=== PATIENT | male | born 1935 | race Caucasian/White ===

== ENCOUNTER 2022-12-12 08:03 | Emergency (ER) | payer OTHER ==
--- OUTSIDE RECORDS SUMMARY | 2022-12-12 08:06 | XMS REPORT | Continuity of Care Document ---
:1935 Author Organization [facility] t Address [address] [place] [address] Care Team Providers Name Role Phone CHECO CRAMONA Primary Care Physician Unavailable TAVIA MISTRY Attending Clinician Unavailable AYLA HIDALGO Attending Clinician Unavailable CHECO CARMONA Attending Clinician Unavailable Payers Payer Name Policy Type Policy Number Effective Date Expiration Date Tulio james LANDON/RAMANA [id number] 2020 MEDICARE ADVANTAGE 00:00:00 MEDICARE PART A [id number] 2001 \T\ B 00:00:00 Problems Condition Condition Condition Status Onset Resolution Last Treating Co mments Source Name Details Category Date Date Treatment Clinician Date Pain in Pain in Diagnosis Active Commo n joint of joint of [facility] right right [facility] Primary Primary Diagnosis Active Commo n osteoarthr osteoarthr Sp epifanio itis of itis of [facility] right right [facility] Subacromia Subacromia Diagnosis Active Common l bursitis l bursitis Sp epifanio of right of right - [facility] shoulder shoulder joint [facility] Allergies, Adverse Reactions, Alerts Allergy Allergy Status Severity Reaction(s) Onset Inactive Treating Comm ents Source Name Type Date Date Clinician NO KNOWN Drug Active Univers ALLERGIE Class ity of [facility] Medications Ordered Filled Start Stop Current Ordering Indication Dosage Frequency Signature Comments Components Source Medication Medication Date Date Medication? Clinician (SIG) Name Name Cholecalcif Cholecalcif 2019-0 Yes Manny 1 tablet Common monica monica 09-01 [facility] 00:00: - [facility] Cetirizine Cetirizine 2019- Yes Manny 1 tablet Common HCl HCl 09-01 [facility] 00:00: - [facility] Hydrochloro Hydrochloro 2020-0 Yes Manny 1 tablet Common thiazide thiazide 5- [facility] 00:00: morning - [facility] Hydrochloro Hydrochloro 2020-0 Yes Manny 1 tablet Common thiazide thiazide 5-07 [facility] 00:00: morning - [facility] Cephalexin Cephalexin 2020-0 Yes Manny 1 capsule Common - [facility] 00:00: - [facility] Etodolac Etodolac 2020-0 Yes Manny 1 capsule Common - Stanley with food Spirit 00:00: - [facility] Diclofenac Diclofenac Yes Manny as Common Sodium Sodium Stanley directed [facility] Procedures This patient has no known procedures. Encounters Start End Encounter Admission Attending Care Care Encounter Source Date/Time Date/Time Type Type Clinicians Facility Department ID 2021-05-23 Outpatient [facility] [id number] Common 11:20:55 [id number] [facility] 2021-05-10 2021-05-10 Outpatient Chelsie MISTRY [facility] [id number] Univers 15:40:00 15:40:00 TAVIA [facility] 2020-06-22 2020-06-22 Outpatient Chelsie HIDALGO [facility] [id number] Univers 09:30:00 09:30:00 AYLA [facility] 2020-06-16 2020-06-16 Outpatient Chelsie HIDALGO [facility] [id number] Univers 09:40:00 09:40:00 AYLA [facility] 2020-05-29 2020-05-29 Outpatient Chelsie CARMONA [facility] [id number] Univers 13:40:00 13:40:00 CHECO [facility] 2020-05-26 2020-05-26 Outpatient Chelsie HIDALGO [facility] [id number] Univers 12:50:00 12:50:00 AYLA [facility] 2020-04-18 2020-04-18 Outpatient Chelsie [facility] [id number] Univers 14:45:00 14:45:00 [facility] 2019-09-02 2019-09-02 Outpatient [facility]raz[facility]irley Mosst [id number] Common 09:00:00 09:00:00 [facility] Results This patient has no known results.
--- NOTE | 2022-12-12 09:26 | RAD REPORT ---
EXAM DESCRIPTION: US - UPPER EXTREMITY VENOUS UNILATE - 12/12/2022 9:05 am CLINICAL HISTORY: Swelling COMPARISON: None. TECHNIQUE: Real-time sonographic evaluation of the left upper extremity deep venous system was perfo rmed. FINDINGS: Normal compressibility, flow augmentation, phasic flow and spontaneous flow is identified in the left upper extremity deep venous system. No intraluminal filling defects seen. Subcutaneous ed lui in the region of swelling at the elbow, without appreciable fluid collections. IMPRESSION: No DVT in the left upper extremity. Subcutaneous swelling at the elbow.
--- NOTE | 2022-12-12 09:30 | EDPHYS ---
Physician Documentation [facility] Name: Owen Boo Age: 87 yrs Sex: Male : 1935 Arrival Date: 12/12/2022 Time: 08:03 Bed 5 Private MD: Jeff Amezcua E ED Physician James Mcneil HPI: 12/12 08:18 This 87 yrs old Male presents to ER via Ambulatory with complaints of Arm Swelling. sb4 08:18 Onset: The symptoms/episode began/occurred yesterday. patient states he noticed his sb4 left elbow was red and swollen yesterday. he reports mild pain, denies fever. his granddaughter is a nurse and told him he might have a blood clot. he denies any chest pain, shortness of breath, nausea, vomiting. Historical: - Allergies: 08:51 No Known Allergies; ap3 - Home Meds: 08:51 None [Active]; ap3 - PMHx: 08:51 None; ap3 - Immunization history:: Adult Immunizations up to date. - Social history:: Smoking status: Patient denies any tobacco usage or history of. ROS: 08:18 Constitutional: Negative for fever, chills, and weight loss. sb4 08:18 MS/extremity: Positive for erythema, swelling, tenderness, warmth, of the left elbow. 08:18 All other systems are negative. Exam: 08:18 Constitutional: This is a well developed, well nourished patient who is awake, alert, sb4 and in no acute distress. 08:18 Musculoskeletal/extremity: ROM: intact in all extremities, Circulation is intact in all extremities. Sensation intact. Compartment Syndrome exam of affected extremity: the left elbow is normal. no numbness, no tingling, no sensation deficit, no palor, no weak pulses. 08:18 Skin: cellulitis, that is mild, on the left elbow, induration, is not appreciated. Vital Signs: 08:17 BP 137 / 64; Weight 86.18 kg; Height 5 ft. 3 in. ; Pain 6/10; ap3 08:20 BP 125 / 67; ld1 08:51 Pulse 73; Pulse Ox 98% on R/A; ap3 08:17 Body Mass Index 33.66 (86.18 kg, 160.02 cm) ap3 08:17 Pain Scale: Adult ap3 MDM: 08:07 Patient medically screened. sb4 08:18 Differential diagnosis: cellulitis, abscess, DVT. sb4 09:29 Data reviewed: vital signs, nurses notes, radiologic studies, doppler, and as a result, sb4 I will discharge patient. Counseling: I had a detailed discussion with the patient and/or guardian regarding the historical points, exam findings, and any diagnostic results supporting the discharge/admit diagnosis, the presence of at least one elevated blood pressure reading (>120/80) during this emergency department visit, radiology results, to return to the emergency department if symptoms worsen or persist or if there are any questions or concerns that arise at home. 12/12 08:15 Order name: Extremity Venous Uni Ltd US sb4 12/12 08:19 Order name: UPPER EXTREMITY VENOUS UNILATE; Complete Time: 09:27 EDMS Administered Medications: 09:37 Drug: Cephalexin PO 500 mg Route: PO; ap3 09:38 Follow up: Response: No adverse reaction ap3 Disposition Summary: 12/12/22 09:29 Discharge Ordered Location: Home sb4 Problem: new sb4 Symptoms: are unchanged sb4 Condition: Stable sb4 Diagnosis - Cellulitis of left upper limb sb4 Followup: sb4 - With: - When: As needed - Reason: Recheck today's complaints, Continuance of care, Re-evaluation by your physician Discharge Instructions: - Discharge Summary Sheet sb4 - Cellulitis, Adult sb4 Forms: - Medication Reconciliation Form sb4 - Thank You Letter sb4 - Antibiotic Education sb4 - Prescription Opioid Use sb4 - Patient Portal Instructions sb4 - Leadership Thank You Letter sb4 Prescriptions: - Cephalexin 500 mg Oral Capsule - take 1 capsule by ORAL route every 12 hours for 10 days; 20 capsule; Refills: sb4 0, Product Selection Permitted Signatures: Dispatcher [employer] Jared Canchola RN RN bp Prokisch, Amanda, RN RN ap3 Kayla Massey PA-C PA-C sb4 Corrections: (The following items were deleted from the chart) 08:18 08:18 Allergies: No Known Allergies; ap3 ap3
--- NOTE | 2022-12-12 09:30 | ER ---
Nurse's Notes [facility] Name: Owen Boo Age: 87 yrs Sex: Male : 1935 Arrival Date: 12/12/2022 Time: 08:03 Bed 5 Private MD: Jeff Amezcua E Diagnosis: Cellulitis of left upper limb Presentation: 12/12 08:15 Chief complaint: Patient states: LEFT ELBOW PAIN/EDEMA/ERYTHEMA. Coronavirus screen: At bp this time, the client does not indicate any symptoms associated with coronavirus-19. Ebola Screen: No symptoms or risks identified at this time. Initial Sepsis Screen: Does the patient meet any 2 criteria? No. Patient's initial sepsis screen is negative. Does the patient have a suspected source of infection? No. Patient's initial sepsis screen is negative. Risk Assessment: Do you want to hurt yourself or someone else? Patient reports no desire to harm self or others. Note DENIES TRAUMA. Onset of symptoms was December 11, 2022. 08:15 Method Of Arrival: Ambulatory bp 08:15 Acuity: BABS 3 bp Triage Assessment: 08:15 General: Appears uncomfortable, Behavior is calm, cooperative, appropriate for age. bp Pain: Complains of pain in left elbow. EENT: No deficits noted. Neuro: No deficits noted. Cardiovascular: No deficits noted. Respiratory: No deficits noted. GI: No signs and/or symptoms were reported involving the gastrointestinal system. : No signs and/or symptoms were reported regarding the genitourinary system. Derm: LEFT ELBOW ERYTHEMA. Musculoskeletal: Swelling present in left elbow. Historical: - Allergies: 08:51 No Known Allergies; ap3 - Home Meds: 08:51 None [Active]; ap3 - PMHx: 08:51 None; ap3 - Immunization history:: Adult Immunizations up to date. - Social history:: Smoking status: Patient denies any tobacco usage or history of. Screenin:18 [facility] ED Fall Risk Assessment (Adult) History of falling in the last 3 months, ap3 including since admission No falls in past 3 months (0 pts). Abuse screen: Denies threats or abuse. Nutritional screening: No deficits noted. Tuberculosis screening: No symptoms or risk factors identified. Assessment: 08:20 Reassessment: See triage assessment. ld1 08:20 Reassessment: Patient appears in no apparent distress at this time. No changes from ld1 previously documented assessment. Patient and/or family updated on plan of care and expected duration. Pain level reassessed. Patient is alert, oriented x 3, equal unlabored respirations, skin warm/dry/pink. Vital Signs: 08:17 BP 137 / 64; Weight 86.18 kg; Height 5 ft. 3 in. ; Pain 6/10; ap3 08:20 BP 125 / 67; ld1 08:51 Pulse 73; Pulse Ox 98% on R/A; ap3 08:17 Body Mass Index 33.66 (86.18 kg, 160.02 cm) ap3 08:17 Pain Scale: Adult ap3 ED Course: 08:06 Patient arrived in ED. rg4 08:06 Jeff Amezcua MD is Private Physician. rg4 08:07 Kayla Massey [facility]-C [facility] sb4 08:07 James Mcneil MD is Attending Physician. sb4 08:16 Triage completed. bp 08:17 Arm band placed on. bp 08:18 Patient has correct armband on for positive identification. Bed in low position. Call ap3 light in reach. Side rails up X 1. Pulse ox on. NIBP on. 08:20 No provider procedures requiring assistance completed. ld1 08:49 Maribel De Luna, SUNNY is Primary Nurse. ld1 08:53 UPPER EXTREMITY VENOUS UNILATE In Process Unspecified. EDMS 09:29 Jeff Amezcua MD is Referral Physician. sb4 09:38 Provided Education on: discharge instructions. ap3 09:38 Patient did not have IV access during this emergency room visit. ap3 Administered Medications: 09:37 Drug: Cephalexin PO 500 mg Route: PO; ap3 09:38 Follow up: Response: No adverse reaction ap3 Medication: 08:20 VIS not applicable for this client. ld1 Outcome: 09:29 Discharge ordered by . sb4 09:38 Discharged to home ambulatory. ap3 09:38 Condition: good 09:38 Discharge instructions given to patient, Instructed on discharge instructions, follow up and referral plans. medication usage, Demonstrated understanding of instructions, follow-up care, medications, Prescriptions given X 1. 09:38 Patient left the ED. ap3 Signatures: Dispatcher [employer] EDMS Berna Ramos rg4 Jared Sarkar, RN RN Magy Rebollar RN RN ap3 Maribel De Luna RN RN ld1 Kayla Massey PA-C PAKristofer sb4 Corrections: (The following items were deleted from the chart) 08:18 08:18 Allergies: No Known Allergies; ap3 ap3
[2022-12-12 09:43] VITALS: BP 125/67
[2022-12-12 09:44] VITALS: O2SAT 98
== END 2022-12-12 09:38 | disposition home or self-care (01) ==
LOC: ER 08:03
DX: L03.114 Cellulitis of left upper limb (principal)
CPT/HCPCS: 93971; 99283

== ENCOUNTER 2023-01-02 06:47 | Inpatient (IN) | payer OTHER ==
--- OUTSIDE RECORDS SUMMARY | 2023-01-02 06:49 | XMS REPORT | Continuity of Care Document ---
:1935 Author Organization [facility] t Address [address] [place] [address] Care Team Providers Name Role Phone CHECO CARMONA Primary Care Physician Unavailable TAVIA MISTRY Attending Clinician Unavailable AYLA HIDALGO Attending Clinician Unavailable CHECO CARMONA Attending Clinician Unavailable Payers Payer Name Policy Type Policy Number Effective Date Expiration Date Tulio NAVARRETE/RAMANA [id number] 2020 MEDICARE ADVANTAGE 00:00:00 MEDICARE PART A [id number] 2001 \T\ B 00:00:00 Problems Condition Condition Condition Status Onset Resolution Last Treating Co mments Source Name Details Category Date Date Treatment Clinician Date Pain in Pain in Diagnosis Active Commo n joint of joint of [facility] right right [facility] Primary Primary Diagnosis Active Commo n osteoarthr osteoarthr Sp epifanio itis of itis of [facility] right right [facility] Subacromia Subacromia Diagnosis Active Common l bursitis l bursitis Sp epifanio of right of right - [facility] Allergies, Adverse Reactions, Alerts Allergy Allergy Status Severity Reaction(s) Onset Inactive Treating Comm ents Source Name Type Date Date Clinician NO KNOWN Drug Active Univers ALLERGIE Class ity of S [facility] Medications Ordered Filled Start Stop Current Ordering Indication Dosage Frequency Signature Comments Components Source Medication Medication Date Date Medication? Clinician (SIG) Name Name Cholecalcif Cholecalcif Yes Manny 1 tablet Common monica monica 09-01 [facility] 00:00: - [facility] 00 [facility] Cetirizine Cetirizine Yes Manny 1 tablet Common HCl HCl 5-07 [facility] 00:00: - [facility] Hydrochloro Hydrochloro 2020-0 Yes Manny 1 tablet Common thiazide thiazide 5-07 [facility] 00:00: morning - [facility] Hydrochloro Hydrochloro 2020-0 Yes Manny 1 tablet Common thiazide thiazide 5-07 [facility] t 00:00: morning - [facility] Cephalexin Cephalexin 2020-0 Yes Manny 1 capsule Common - [facility] 00:00: - [facility] Etodolac Etodolac 2020-0 Yes Manny 1 capsule Common - Stanley with food Spirit 00:00: - [facility] Diclofenac Diclofenac Yes Manny as Common Sodium Sodium Stanley directed [facility] Procedures This patient has no known procedures. Encounters Start End Encounter Admission Attending Care Care Encounter Source Date/Time Date/Time Type Type Clinicians Facility Department ID 2021-05-23 Outpatient [facility] [id number] Common 11:20:55 [id number] [facility] 2021-05-10 2021-05-10 Outpatient Chelsie MISTRY [facility] [id number] Univers 15:40:00 15:40:00 TAVIA [facility] 2020-06-22 2020-06-22 Outpatient Chelsie HIDALGO [facility] [id number] Univers 09:30:00 09:30:00 AYLA [facility] 2020-06-16 2020-06-16 Outpatient Chelsie HIDALGO [facility] [id number] Univers 09:40:00 09:40:00 AYLA [facility] 2020-05-29 2020-05-29 Outpatient Chelsie CARMONA [facility] [id number] Univers 13:40:00 13:40:00 CHECO [facility] 2020-05-26 2020-05-26 Outpatient Chelsie HIDALGO [facility] [id number] Univers 12:50:00 12:50:00 AYLA [facility] 2020-04-18 2020-04-18 Outpatient R [facility] [id number] Univers 14:45:00 14:45:00 [facility] 2019-09-02 2019-09-02 Outpatient Isa Huynh [id number] Common 09:00:00 09:00:00 t [facility] Joint - [facility] Results This patient has no known results.
[2023-01-02 07:41] LABS: Absolute Lymphocytes (CBC) 0.6 K/uL (0.7-4.9); Hematocrit 30.6 % (39.6-49.0); Lymphocytes % 5.4 % (15.3-44.8); MCV 91.7 fL (80-100); MPV 8.6 fL (7.6-11.3); Platelets 265 thou/uL (152-406); RBC Red Blood Cell Count 3.34 M/uL (4.33-5.43)
[2023-01-02 07:57] LABS: Albumin 3.2 g/dL (3.4-5.0); Bilirubin Total 0.6 mg/dL (0.2-1.0); Potassium 4.4 mEq/L (3.5-5.1); Protein, Total 7.7 g/dL (6.4-8.2)
--- NOTE | 2023-01-02 08:41 | RAD REPORT ---
EXAM DESCRIPTION: CT - Abdomen Pelvis W Contrast - 01/02/2023 8:20 am CLINICAL HISTORY: Abdominal pain COMPARISON: none. TECHNIQUE: Computed axial tomography of the abdomen pelvis was obtained. 100 cc Isovue-300 was admin istered intravenously. Oral contrast was not requested which limits evaluation of bowel and appendix All CT scans are performed using dose optimization technique as appropriate and may include automated exposure control or mA/KV adjustment according to patient size. FINDINGS: Liver, spleen, pancreas, adrenals and right kidney are unremarkable. Tiny nonobstructing l eft renal calculus Probable cholelithiasis. No gallbladder wall thickening The appendix is dilated and fluid-filled with adjacent stranding. Extraluminal air bubble is present. Moderate to large left inguinal hernia contains fat. A small right inguinal hernia Mild prostatic enlargement IMPRESSION: Appendicitis. Extraluminal air bubble suggest perforation Moderate to large left inguinal hernia
--- NOTE | 2023-01-02 10:08 | EDPHYS ---
Physician Documentation [facility] Name: Owen Boo Age: 87 yrs Sex: Male : 1935 Arrival Date: 01/02/2023 Time: 06:47 Bed 19 Private MD: ED Physician Ethan Kevin HPI: 01/02 07:34 This 87 yrs old Male presents to ER via Ambulatory with complaints of Lower abdominal sp3 pain. 07:34 87-year-old male with history of hypertension, prostate hyperplasia now presents to the [facility] ED with 1 week of right lower quadrant abdominal pain as well as a mechanical ground-level fall where he hit the side of a table with his abdomen as well at approximately the same time. He denies any other symptoms including back pain, left-sided pain, chest pain, nausea, vomiting, diarrhea, blood in his stools, melena, rash, syncope, near syncope, or any other signs or symptoms on ROS at this time.. Historical: - Allergies: 07:06 No Known Allergies; iw - PMHx: 07:06 Hypertensive disorder; iw ROS: 07:34 Constitutional: Negative for fever, chills, and weight loss, Eyes: Negative for injury, sp3 pain, redness, and discharge, Cardiovascular: Negative for chest pain, palpitations, and edema, Respiratory: Negative for shortness of breath, cough, wheezing, and pleuritic chest pain, Back: Negative for injury and pain, MS/Extremity: Negative for injury and deformity, Skin: Negative for injury, rash, and discoloration, Neuro: Negative for headache, weakness, numbness, tingling, and seizure, Psych: Negative for depression, anxiety, suicide ideation, homicidal ideation, and hallucinations, Allergy/Immunology: Negative for hives, rash, and allergies, Endocrine: Negative for neck swelling, polydipsia, polyuria, polyphagia, and marked weight changes, Hematologic/Lymphatic: Negative for swollen nodes, abnormal bleeding, and unusual bruising. 07:34 All other systems are negative. Exam: 07:35 Constitutional: This is a well developed, well nourished patient who is awake, alert, sp3 and in no acute distress. Head/Face: Normocephalic, atraumatic. Eyes: Pupils equal round and reactive to light, extra-ocular motions intact. Lids and lashes normal. Conjunctiva and sclera are non-icteric and not injected. Cornea within normal limits. Periorbital areas with no swelling, redness, or edema. Neck: Trachea midline, no thyromegaly or masses palpated, and no cervical lymphadenopathy. Supple, full range of motion without nuchal rigidity, or vertebral point tenderness. No Meningismus. Chest/axilla: Normal chest wall appearance and motion. Nontender with no deformity. No lesions are appreciated. Cardiovascular: Regular rate and rhythm with a normal S1 and S2. No gallops, murmurs, or rubs. Normal PMI, no JVD. No pulse deficits. Respiratory: Lungs have equal breath sounds bilaterally, clear to auscultation and percussion. No rales, rhonchi or wheezes noted. No increased work of breathing, no retractions or nasal flaring. Back: No spinal tenderness. No costovertebral tenderness. Full range of motion. Skin: Warm, dry with normal turgor. Normal color with no rashes, no lesions, and no evidence of cellulitis. MS/ Extremity: Pulses equal, no cyanosis. Neurovascular intact. Full, normal range of motion. Neuro: Awake and alert, GCS 15, oriented to person, place, time, and situation. Cranial nerves II-XII grossly intact. Motor strength 5/5 in all extremities. Sensory grossly intact. Cerebellar exam normal. Normal gait. Psych: Awake, alert, with orientation to person, place and time. Behavior, mood, and affect are within normal limits. 07:35 Abdomen/GI: Right sided abdominal pain in the upper and lower quadrants. No peritoneal signs, rebound or guarding noted.. Vital Signs: 07:04 BP 143 / 78; Pulse 86; Resp 16; Temp 98.1; Pulse Ox 100% on R/A; Weight 86.18 kg; iw Height 5 ft. 10 in. ; Pain 1/10; 08:33 BP 122 / 82; Pulse 73; Resp 16 S; Pulse Ox 95% on R/A; kc6 10:31 BP 155 / 61; Pulse 74; Resp 18 S; Pulse Ox 98% on R/A; kc6 11:31 BP 147 / 60; Pulse 73; Resp 18 S; Temp 97.7(O); Pulse Ox 94% on R/A; kc6 07:04 Body Mass Index 27.26 (86.18 kg, 177.8 cm) iw 07:04 Pain Scale: Adult iw MDM: 07:11 Patient medically screened. sp3 07:35 Data reviewed: vital signs, nurses notes, old medical records, lab test result(s), sp3 radiologic studies. ED course: 87-year-old male with hypertension here with right sided abdominal pain status post fall and also had lifted a heavy object at about the same time. Will obtain CT scan of the abdomen pelvis, laboratory values, urine analysis and keep patient n.p.o. until results are back. Differential diagnosis is broad and includes possible hernia, traumatic injury, functional abdominal pain, colitis, appendicitis, biliary pathology, among others. I am not highly concerned about vascular pathology including AAA, mesenteric ischemia, or any other critical pathways including sepsis and shock. Disposition will be based on work-up and patient course with probable discharge if work-up is negative.. 10:06 ED course: Patient has perforated appendicitis along with a left hernia fat-containing sp3 only. WBC count is 11.6. I spoke to Dr. Leigh who will be seeing patient in consultation. Zosyn 2.5 g of been ordered secondary to renal insufficiency of 1.6. Discussed with patient he will be kept n.p.o. pending admission and further work-up.. 01/02 07:31 Order name: CBC with Diff sp3 01/02 07:31 Order name: CMP; Complete Time: 08:41 sp3 01/02 07:31 Order name: Lipase; Complete Time: 08:41 sp3 01/02 07:31 Order name: Urinalysis w/ reflexes sp3 01/02 10:09 Order name: PT-INR bd 01/02 10:09 Order name: Ptt, Activated bd 01/02 11:01 Order name: CBC Smear Scan EDMS 01/02 07:31 Order name: CT Abd/Pelvis - IV Contrast Only; Complete Time: 09:41 sp3 01/02 10:09 Order name: EKG; Complete Time: 10:09 bd 01/02 10:41 Order name: CONS Physician Consult EDMS 01/02 10:41 Order name: CONS Physician Consult EDMS 01/02 07:31 Order name: IV Saline Lock; Complete Time: 07:33 sp3 01/02 07:31 Order name: Labs collected and sent; Complete Time: 07:33 sp3 Administered Medications: 10:10 Drug: Piperacillin-Tazobactam IVPB 2.25 grams Route: IVPB; Infused Over: 60 mins; Site: kc6 right antecubital; 11:26 Follow up: Response: No adverse reaction; IV Status: Completed infusion; IV Intake: kc6 100ml Disposition Summary: 01/02/23 10:07 Hospitalization Ordered Hospitalization Status: Inpatient Admission sp3 Provider: Сергей Gonzales sp3 [facility]) sp3 Condition: Stable sp3 Problem: new sp3 Symptoms: have worsened sp3 Bed/Room Type: Standard sp3 Room Assignment: sp3 Diagnosis - Perforated appendicitis, renal insufficiency, dehydration, abdominal pain sp3 Forms: - Medication Reconciliation Form sp3 - SBAR form sp3 - Leadership Thank You Letter sp3 Signatures: Dispatcher [employer] Dixie Benz RN RN iw Ethan Kevin MD MD sp3 Migdalia Campos RN RN kc6
--- NOTE | 2023-01-02 10:08 | ER ---
Nurse's Notes [facility] Name: Owen Boo Age: 87 yrs Sex: Male : 1935 Arrival Date: 01/02/2023 Time: 06:47 Bed 19 Private MD: Diagnosis: Perforated appendicitis, renal insufficiency, dehydration, abdominal pain Presentation: 01/02 07:04 Chief complaint: Patient states: thinks he has a hernia in his lower stomach , has pain iw , noticed it a week ago after a fall , yesterday I picked up a heavy case of water and i felt a sharp pain. Coronavirus screen: At this time, the client does not indicate any symptoms associated with coronavirus-19. Ebola Screen: Patient negative for fever greater than or equal to 101.5 degrees Fahrenheit, and additional compatible Ebola Virus Disease symptoms Patient denies exposure to infectious person. Patient denies travel to an Ebola-affected area in the 21 days before illness onset. No symptoms or risks identified at this time. Initial Sepsis Screen: Does the patient meet any 2 criteria? No. Patient's initial sepsis screen is negative. Does the patient have a suspected source of infection? No. Patient's initial sepsis screen is negative. Risk Assessment: Do you want to hurt yourself or someone else? Patient reports no desire to harm self or others. Onset of symptoms was December 27, 2022. 07:04 Method Of Arrival: Ambulatory iw 07:04 Acuity: BABS 3 iw Historical: - Allergies: 07:06 No Known Allergies; iw - PMHx: 07:06 Hypertensive disorder; iw Screenin:31 [facility] ED Fall Risk Assessment (Adult) History of falling in the last 3 months, kc6 including since admission Yes- single mechanical fall (1 pt) Confusion or Disorientation No (0 pts) Intoxicated or Sedated No (0 pts) Impaired Gait No (0 pts) Mobility Assist Device Used No (0 pt) Altered Elimination No (0 pt) Score/Fall Risk Level 0 - 2 = Low Risk. Abuse screen: Denies threats or abuse. Denies injuries from another. Nutritional screening: No deficits noted. Tuberculosis screening: No symptoms or risk factors identified. Assessment: 07:31 General: Appears in no apparent distress. comfortable, Behavior is calm, cooperative, kc6 appropriate for age. Pain: Complains of pain in right lower quadrant and left lower quadrant Pain does not radiate. Pain currently is 2 out of 10 on a pain scale. Neuro: Level of Consciousness is awake, alert, obeys commands, Oriented to person, place, time, situation, Appropriate for age. Cardiovascular: Capillary refill < 3 seconds. Respiratory: Airway is patent Trachea midline Respiratory effort is even, unlabored, Respiratory pattern is regular, symmetrical. GI: Abdomen is round Reports lower abdominal pain, Patient currently denies diarrhea, nausea, vomiting. : No signs and/or symptoms were reported regarding the genitourinary system. EENT: No signs and/or symptoms were reported regarding the EENT system. Derm: No signs and/or symptoms reported regarding the dermatologic system. Skin is intact, is healthy with good turgor, Skin is pink, warm \T\ dry. Musculoskeletal: No signs and/or symptoms reported regarding the musculoskeletal system. Circulation, motion, and sensation intact. Capillary refill < 3 seconds, Range of motion: intact in all extremities. 08:33 Reassessment: Patient appears in no apparent distress at this time. No changes from kc6 previously documented assessment. Patient and/or family updated on plan of care and expected duration. Pain level reassessed. Patient is alert, oriented x 3, equal unlabored respirations, skin warm/dry/pink. 09:33 Reassessment: Patient appears in no apparent distress at this time. No changes from kc6 previously documented assessment. Patient and/or family updated on plan of care and expected duration. Pain level reassessed. Patient is alert, oriented x 3, equal unlabored respirations, skin warm/dry/pink. 10:33 Reassessment: Patient appears in no apparent distress at this time. No changes from kc6 previously documented assessment. Patient and/or family updated on plan of care and expected duration. Pain level reassessed. Patient is alert, oriented x 3, equal unlabored respirations, skin warm/dry/pink. Vital Signs: 07:04 BP 143 / 78; Pulse 86; Resp 16; Temp 98.1; Pulse Ox 100% on R/A; Weight 86.18 kg; iw Height 5 ft. 10 in. ; Pain 05/07; 08:33 BP 122 / 82; Pulse 73; Resp 16 S; Pulse Ox 95% on R/A; kc6 10:31 BP 155 / 61; Pulse 74; Resp 18 S; Pulse Ox 98% on R/A; kc6 11:31 BP 147 / 60; Pulse 73; Resp 18 S; Temp 97.7(O); Pulse Ox 94% on R/A; kc6 07:04 Body Mass Index 27.26 (86.18 kg, 177.8 cm) iw 07:04 Pain Scale: Adult ED Course: 06:49 Patient arrived in ED. im 07:06 Triage completed. iw 07:06 Arm band placed on. iw 07:11 Ethan Kevin MD is Attending Physician. sp3 07:11 Migdalia Campos, SUNNY is Primary Nurse. kc6 07:31 Bed in low position. Call light in reach. Side rails up X2. Client placed on continuous kc6 cardiac and pulse oximetry monitoring. NIBP monitoring applied. 07:31 Inserted saline lock: 20 gauge in right antecubital area, using aseptic technique. kc6 Blood collected. 08:21 CT Abd/Pelvis - IV Contrast Only In Process Unspecified. EDMS 10:07 Сергей Gonzales MD is Hospitalizing Provider. sp3 11:33 No provider procedures requiring assistance completed. Patient admitted, IV remains in kc6 place. Administered Medications: 10:10 Drug: Piperacillin-Tazobactam IVPB 2.25 grams Route: IVPB; Infused Over: 60 mins; Site: [facility] right antecubital; 11:26 Follow up: Response: No adverse reaction; IV Status: Completed infusion; IV Intake: kc6 100ml Medication: 11:34 VIS not applicable for this client. kc6 Intake: 11:26 IV: 100ml; Total: 100ml. kc Outcome: 10:07 Decision to Hospitalize by Provider. sp3 11:33 Admitted to OR accompanied by nurse, via stretcher, with chart, Report called to tamela Romero RN 11:33 Condition: stable 11:33 Instructed on the need for admit. 11:42 Patient left the ED. bd Signatures: Dispatcher [employer] EDMS Amy Paulson Irene, RN RN iw Ethan Kevin MD MD sp3 Migdalia Campos RN RN kc Davina Ontiveros im
[2023-01-02] MEDS ORDERED: NA CHLORIDE 0.9% 100 ML ONE (10:14)
[2023-01-02] MEDS ORDERED: PIPERACIL/TAZO 2.25 GM VIAL IV ONE (10:14)
[2023-01-02 10:16] LABS: Urine Bacteria None Seen /HPF (<20); Urine Bilirubin NEGATIVE (Negative); Urine Blood Negative (Negative); Urine Clarity Clear (Clear); Urine Color Light-Yellow (Yellow); Urine Glucose NEGATIVE (Negative); Urine Protein TRACE (Negative); Urine RBC <5 /HPF (None Seen); Urine Urobilinogen Normal (Normal); Urine pH 6.5 (5.0-7.0)
[2023-01-02 10:18] LABS: Specific Gravity > 1.030 (1.005-1.030)
[2023-01-02 10:40] LABS: Protime INR 1.05
[2023-01-02 11:01] LABS: Blood Morphology Comment NOT SEEN (NOT SEEN); Platelet Estimate ADEQ; Platelets, Giant FEW PRESENT; White Blood Cell Scan OK (OK)
[2023-01-02] MEDS ORDERED: dexAMETHasone 10 MG/ML VIAL ONE (11:54)
[2023-01-02] MEDS ORDERED: ONDANSETRON 4 MG/2 ML VIAL ONE (11:54)
[2023-01-02] MEDS ORDERED: ROCURONIUM 50 MG/5 ML VIAL IV ONE (11:54)
[2023-01-02] MEDS ORDERED: propofoL 200 MG/20 ML VIAL IV ONE (11:54)
[2023-01-02] MEDS ORDERED: LIDOCAINE 2% MPF 5 ML VIAL ONE (11:54)
[2023-01-02] MEDS ORDERED: FENTANYL CITR 100 MCG/2 ML ONE (11:54)
[2023-01-02] MEDS ORDERED: Ringers Lactate 1,000 ML IV ONE (12:38)
--- NOTE | 2023-01-02 13:22 | P.HP ---
Certification for Inpatient Patient admitted to: Observation With expected LOS: <2 Midnights Patient will require the following post-hospital care: None Practitioner: I am a practitioner with admitting privileges, knowledge of patient current condition, hospital course, and medical plan of care. Services: Services provided to patient in accordance with Admission requirements found in Title 42 Section 412.3 of the Code of Federal Regulations Patient History Date of Service: 01/02/23 History of Present Illness: 57-year-old male with history of hypertension prostate hyperplasia came with complaints of lower abdominal pain for 1 week also reported a fall and he hit the side of a table with his abdomen this morning. He denies back pain left- sided pain, chest pain, nausea, vomiting, diarrhea, blood in his stool, rash, syncope, near syncope or any other signs or symptoms. His vital signs 143/78, pulse is 73/min respiration 16 pulse ox meter showing 95% on room air. Lab is showing WBC of 11.8 hemoglobin 10.6 hematocrit 30. neutrophils 88.0 lymphocytes 5.4, absolute neutrophils 10.3 absolute lymphs lymphocytes 0.6, elevated renal profile BUN 28 creatinine 1.63, GFR 41 blood sugar [address] abdomen pelvis with contrast showing appendicitis. Extraluminal air bubble suggest perforation. General surgery referral sent patient will be admitted for further management. Discussed the plan with the patient and the son. Allergies No Known Allergies Allergy (Unverified 01/02/23 11:20) - Past Medical/Surgical History -: HTN -: BPH Review of Systems ENT: Other (KIANA uses hearing aid) Gastrointestinal: Abdominal Pain (since 1 week, mild to moderate), No Distention Genitourinary: Unremarkable Musculoskeletal: As per HPI (no edema) Integumentary: Unremarkable Neurological: Unremarkable Lymphatics: Unremarkable Physical Examination - Vital Signs Temperature: 97.7 F Blood Pressure: 147/60 Pulse: 73 Respirations: 18 - Physical Exam General: Alert, Oriented x3 HEENT: PERRLA Neck: Without JVD or thyroid abnormality Respiratory: Clear to auscultation bilaterally Cardiovascular: No edema Capillary refill: <2 Seconds Gastrointestinal: Normal bowel sounds Musculoskeletal: No clubbing, No swelling Integumentary: No rashes Neurological: Normal speech Lymphatics: No axilla or inguinal lymphadenopathy - Studies Laboratory Data (last 24 hrs) 01/02/23 01/02/23 01/02/23 10:26 07:33 07:33 WBC 11.80 H Hgb 10.6 L Hct 30.6 L Plt Count 265 PT 11.5 INR 1.05 APTT 32.3 Sodium 136 Potassium 4.4 BUN 28 H Creatinine 1.63 H Glucose 203 H Total Bilirubin 0.6 AST 16 ALT 22 Alkaline Phosphatase 69 Lipase 23 Assessment and Plan - Plan Assessment and plan Appendicitis Renal insufficiency Hypertension Appendicitis Admit the patient for the possible surgical management. IV Zosyn started in the ER N.p.o. P referred to general surgery. Informed Dr. Mcgee Discussed the plan with the patient and the son Renal insufficiency: IV hydration started. Referred to choker setter Dr. Martines, We will continue to monitor. Hypertension Chronic controlled on the current medication, blood pressure log reviewed home medication to be restarted Continued appropriate home medication DVT Prophylaxis Full code - Advance Directives Does patient have a Living Will: No Does patient have a Durable POA for Healthcare: No - Code Status/Comfort Care Code Status Assessed: Yes (Full code) Code Status: Full Code Critical Care: Yes Time Spent Managing Pts Care (In Minutes): 55 (minutes)
[2023-01-02] MEDS ORDERED: GLYCOPYRROLATE 0.2 MG/ML SYR ONE (14:07)
[2023-01-02] MEDS ORDERED: NEOSTIGMINE 1 MG/ML -10 ML VIAL ONE (14:07)
--- NOTE | 2023-01-02 14:07 | P.BOP ---
Preoperative diagnosis: acute perforated appendicitis Postoperative diagnosis: same plus periappendiceal abscess, umbilical hernia Primary procedure: Laparoscopic appendectomy Secondary procedure: open repair of umbilical hernia Safety Lead: Ann Gonsalez) Estimated blood loss: <20cc Specimen: appemdix hernia sac Findings: acute perforated appendicitis with periappendiceal abscess Anesthesia: General Complications: None Drain(s): TIFFANIE drain Transferred to: Recovery Room Condition: Good
[2023-01-02] MEDS ORDERED: MORPHINE 2 MG/ML SYR IV PRN (14:09)
[2023-01-02] MEDS ORDERED: HYDROCODONE/APAP 5/325 MG TAB PO PRN (14:09)
--- NOTE | 2023-01-02 15:40 | OP ---
Date of Procedure: 01/02/2023 Surgeon: Pepe Leigh MD Cook Cold Meat: Ann Vicente. Preoperative Diagnoses: Acute perforated appendicitis, abdominal pain, renal insufficiency. Postoperative Diagnoses: Acute perforated appendicitis, abdominal pain, renal insufficiency, periapp endiceal abscess, and umbilical hernia. Procedures: Laparoscopic ruptured appendectomy, open repair of umbilical hernia. Estimated Blood Loss: Less than 10 mL. Specimen: Appendix and hernia sac. Finding: Acute perforated appendicitis with adjacent periappendiceal abscess. Anesthesia: General plus local. Drains: TIFFANIE #10. Indication: This is a case of an 87-year-old patient, who comes to us with peritonitis. Fully expla ined the need for an emergent laparoscopic possible open appendectomy with benefits, alternatives, an d risks including, but not limited to infection, bleeding, damage to adjacent structures, anesthesia complication, abscess, [place], and even . He also understood this may not relieve any symptoms. He might need more than one surgical intervention. He understood, signed a consent. Procedure In Detail: The patient was brought to the operating room, placed in supine position. Anes thesia was done without complication. We noticed the abdomen to have an umbilical hernia, so we prep ped and draped the abdomen in the usual sterile fashion after time-out. We proceeded to make an inci ruddy in the periumbilical region. The incision was carried down until we find the hernia sac that wa s removed after the contents were carefully reduced. Vicryl #1 placed inside the fascia and placed a nd advanced [id number] fashion to close the hernia at the end. Yesenia trocar was placed, then p neumoperitoneum was obtained. After that, I placed 2 more trocars, 5 mm each one of them in the supr apubic and left lower quadrant under direct visualization. This allowed me to visualize an inflamed appendix. There were adhesions and stranding around the area. We used LigaSure to be able to mobili ze the mesoappendix. We have to then verify the area where we have a possible rupture, we have an ab scess in that region, but we were able to clear the area just at the area near the cecum to transect that region and remove the appendix completely with Endo-REYES 45 mm nonvascular. Appendix removed fro m abdominal cavity using EndoCatch through the umbilical incision. No bile leak, no bleeding. Profu se irrigation was done with several liters of fluid until clear. TIFFANIE drain placed in that region exit ing through 1 of the trocar sites. At that moment, I proceeded to remove the trocars under direct vi ruddy. Deflated the pneumoperitoneum. Closed the fascia with #1 Vicryl and the umbilical hernia with #1 Vicryl and then irrigated subcutaneous tissue with 3-0 chromic and skin with staple. TIFFANIE was conn ected to bulb suction. The patient tolerated the procedure well. The patient was sent to recovery i n stable condition. VINH/MEHDI Voice ID: [id number] Report ID: [id number]
[2023-01-02] MEDS: PIPER TAZO 3.375 GM in NA CHLORIDE 0.9% 100 ML IV SCH (16:53)
--- NOTE | 2023-01-02 17:04 | CON ---
Date of Consultation: 01/02/2023 Diagnoses: Perforated appendicitis, peritonitis. History Of Present Illness: This is the case of an 87-year-old patient, who comes to us with what se ems to be a perforated appendicitis. The patient came to the ER with abdominal pain of unknown origi n. He is the patient from a [facility], not too long ago. He was on steroids and then after that d eveloped cellulitis of the left elbow and he has been on antibiotics, Cipro for the last several days . His doctors are mainly at [place], so we do not have much information about all this treatment he has b een receiving recently, but he remembered he never had a colonoscopy done before. He denies any dysu prosper, hematuria, hematochezia, melena. Denies any recent traveling out of the country. Denies any [facility] member sick at home. Once again, he denies any previous colonoscopies. Allergies: NONE. Past Medical History: Hypertension, prostate hyperplasia. Social History: He does not smoke. He does not drink alcohol. Family History: Noncontributory. Review of Systems: As per HPI. Physical Examination: General: The patient is awake, alert. HEENT: Pupils are equal and reactive. Anicteric. Neck: Supple. Chest: Clear. Heart: S1, S2. Abdomen: Right lower quadrant tenderness with guarding. Rectal: Deferred. Extremities: Good capillary refill. Laboratory Data: Blood work shows WBC count of 11.8, hemoglobin of 10.6, and platelets of 265 with p otassium of 4.4, creatinine is 1.63, glucose 203. CAT scan of the abdomen and pelvis interpreted by Dr. Appiah as an appendix dilated and fluid-filled adjacent stranding. Extraluminal air bubble is p resent consistent with appendicitis, possible perforation. The patient also has a left inguinal santiago ia. Assessment: An 87-year-old patient, who comes to us with abdominal pain in right lower quadrant, fou nd to have appendicitis and probably a perforation with stranding around the region and no previous c olonoscopies. The patient is at bedside with his family member. The benefits, alternatives, and ris ks of emergent laparoscopic possible open appendectomy fully explained, which include, but not limite d to infection, bleeding, damage to adjacent structures, anesthesia complication, abscess, CT, and ev en . They also understands this may not relieve any symptoms. He might need more than one surg ical intervention the biopsy and he may require further surgeries, even though an 87-year- old may have appendix like anybody else. With no previous colonoscopies, it is hard to say the cause of this, tumor cannot be rule out, also intra-abdominal abscess and issue sepsis. They understood. The OR was emergently called and signed consent. VINH/MEHDI Voice ID: [id number] Report ID: [id number]
--- NOTE | 2023-01-02 21:15 | P.CNS ---
Date of Consult: 01/02/23 Reason for Consult: NAYELY Requesting Physician: Сергей Gonzales Chief Complaint: Abdominal Pain History of Present Illness: 57-year-old male with history of hypertension prostate hyperplasia came with complaints of lower abdominal pain for 1 week also reported a fall and he hit the side of a table with his abdomen this morning. He denies back pain left- sided pain, chest pain, nausea, vomiting, diarrhea, blood in his stool, rash, syncope, near syncope or any other signs or symptoms. His vital signs 143/78, pulse is 73/min respiration 16 pulse ox meter showing 95% on room air. Lab is showing WBC of 11.8 hemoglobin 10.6 hematocrit 30. neutrophils 88.0 lymphocytes 5.4, absolute neutrophils 10.3 absolute lymphs lymphocytes 0.6, elevated renal profile BUN 28 creatinine 1.63, GFR 41 blood sugar [address] abdomen pelvis with contrast showing appendicitis. Extraluminal air bubble suggest perforation. General surgery referral sent patient will be admitted for further management. Discussed the plan with the patient and the son. [id number] 07:34 This 87 yrs old Male presents to ER via Ambulatory with complaints of Lower abdominal sp3 pain. 07:34 87-year-old male with history of hypertension, prostate hyperplasia now presents to the sp3 ED with 1 week of right lower quadrant abdominal pain as well as a mechanical ground-level fall where he hit the side of a table with his abdomen as well at approximately the same time. He denies any other symptoms including back pain, left-sided pain, chest pain, nausea, vomiting, diarrhea, blood in his stools, me kimi, rash, syncope, near syncope, or any other signs or symptoms on ROS at this time.. He denies NSAIDs. He reports that [facility] Allergies No Known Allergies Allergy (Unverified 01/02/23 11:20) - Past Medical/Surgical History Diabetic: No -: HTN -: BPH - Social History Alcohol use: No CD- Drugs: No Caffeine use: Yes Place of Residence: Home Review of Systems 10-point ROS is otherwise unremarkable Gastrointestinal: Abdominal Pain Physical Examination Temp Pulse Resp BP Pulse Ox 97.7 F 73 16 147/60 H 94 01/02/23 17:03 01/02/23 17:03 01/02/23 18:25 01/02/23 17:03 01/02/23 18:25 General: In no apparent distress, Oriented x3, Cooperative HEENT: Atraumatic Neck: Supple Respiratory: Clear to auscultation bilaterally Cardiovascular: No edema, Regular rate/rhythm Gastrointestinal: Hypoactive, No guarding, Tenderness Musculoskeletal: No clubbing, No contractures Integumentary: No rashes, No cyanosis Neurological: Normal speech Laboratory Data (last 24 hrs) 01/02/23 01/02/23 01/02/23 10:26 07:33 07:33 WBC 11.80 H Hgb 10.6 L Hct 30.6 L Plt Count 265 PT 11.5 INR 1.05 APTT 32.3 Sodium 136 Potassium 4.4 BUN 28 H Creatinine 1.63 H Glucose 203 H Total Bilirubin 0.6 AST 16 ALT 22 Alkaline Phosphatase 69 Lipase 23 Imagings Data: Abd/ Pelvis CT reviewed. Conclusions/Impression: Stage I NAYELY in the setting of hypovolemia Proteinuria Underlying CKD is unclear at this time -No NSAIDs -Start LR HTN -Consider antihypertensive therapy BPH with LUTS -Start Tamsulosin Anemia in chronic illness -Monitor H&H Case reviewed with hospitalist team Thank you kindly for the consultation
[2023-01-02] MEDS: Ringers Lactate 1,000 ML IV SCH (21:37)
[2023-01-03] MEDS: PIPER TAZO 3.375 GM in NA CHLORIDE 0.9% 100 ML IV SCH ×3 (00:13→17:53)
[2023-01-03] MEDS: TAMSULOSIN 0.4 MG SR CAP PO SCH (03:57)
[2023-01-03 06:04] LABS: UR PROTEIN 53.5 mg/dL (<11.9); Urine Protein/Creatinine Ratio 0.4 ratio (<0.15)
[2023-01-03 08:38] LABS: Absolute Lymphocytes (CBC) 0.8 K/uL (0.7-4.9); Hematocrit 29.6 % (39.6-49.0); Lymphocytes % 7.4 % (15.3-44.8); MPV 8.8 fL (7.6-11.3); Platelets 266 thou/uL (152-406); RBC Red Blood Cell Count 3.18 M/uL (4.33-5.43)
[2023-01-03 08:51] LABS: Potassium 4.6 mEq/L (3.5-5.1)
[2023-01-03 08:52] LABS: Magnesium 2.3 mg/dL (1.6-2.4); Phosphorus 3.8 mg/dL (2.5-4.9); Uric Acid 6.1 mg/dL (3.5-7.2)
--- NOTE | 2023-01-03 09:19 | P.CNS ---
Date of Consult: 01/03/23 Reason for Consult: perforated appendicitis Chief Complaint: Abdominal Pain History of Present Illness: Patient is an 87-year-old male with a past medical history of hypertension and BPH who presented to the ED with complaints of abdominal pain x 1 week which has been worsening. CT abdomen pelvis obtained which showed "Appendicitis. Extraluminal air bubble suggest perforation. Moderate to large left inguinal hernia." General surgery was consulted. Patient underwent laparoscopic appendectomy on 01/[address] Leigh. Infectious disease was consulted Allergies No Known Allergies Allergy (Unverified 01/02/23 11:20) Home medications list reviewed: Yes - Past Medical/Surgical History Diabetic: No -: HTN -: BPH - Social History Alcohol use: No CD- Drugs: No Caffeine use: Yes Place of Residence: Home Review of Systems Unremarkable Physical Examination Temp Pulse Resp BP Pulse Ox 98.3 F 60 16 129/59 L 95 01/03/23 08:00 01/03/23 08:00 01/03/23 08:00 01/03/23 08:00 01/03/23 08:00 General: Alert, In no apparent distress, Oriented x3 HEENT: Atraumatic, Normocephalic, Other (Hearing loss, bilateral hearing aids) Neck: Supple, JVD not distended Respiratory: Diminished, Other (on room air) Cardiovascular: Normal S1 S2 Gastrointestinal: Normal bowel sounds, No tenderness, Distended Musculoskeletal: No clubbing Integumentary: Other (laparoscopy incision sites clean dry and intact. TIFFANIE drain with serosanguineous output. ) Neurological: Normal speech, Normal tone, Normal affect Laboratory Data (last 24 hrs) 01/02/23 01/02/23 10:26 07:33 WBC 11.80 H Hgb 10.6 L Hct 30.6 L Plt Count 265 PT 11.5 INR 1.05 APTT 32.3 Conclusions/Impression: Problem list Acute perforated appendicitis with periappendiceal abscess Hypertension BPH acute perforated appendicitis with periappendiceal abscess - CT abdomen pelvis 01/02: "Appendicitis. Extraluminal air bubble suggest perforation. Moderate to large left inguinal hernia." - Underwent laparoscopic appendectomy and open repair of umbilical hernia on 01/[address] Leigh. He was found to have acute perforated appendicitis with periappendiceal abscess - On Zosyn started 01/02 - Leukocytosis resolved. Afebrile. Recommendations -Continue antibiotic therapy for 4-7 days postoperatively. - Currently on Zosyn, continue until cleared for PO intake. -Surgical site wound care per Dr. Leigh. -Monitor WBC and fever trends -Encourage incentive spirometry Case discussed with Domenico Rodriguez
[2023-01-03 13:27] VITALS: BMI 27.1
[2023-01-03] MEDS: Ringers Lactate 1,000 ML IV SCH (13:49)
--- NOTE | 2023-01-03 16:15 | PN ---
Date of Progress Note: 01/03/2023 Reason For Service: Perforated appendicitis. Subjective: This is the case of an 87-year-old patient, who comes to this hospital because the small fall. He came here just to be checked up. During the process, the patient found to have something abnormal on the appendix that resulted to be a perforated appendicitis. We have taken him emergently to surgery and we indeed confirmed the perforated appendicitis with abscess in the periappendiceal r egion. The patient has no previous colonoscopy to see if there is any neoplasm involved in the colon . The surgery was done. Today, he is feeling fantastic. WBC count came back normal. He has no fev er. He is up and down from the bed like it does not hurt. He is active. He is moving. Objective: Chest: Clear. Abdomen: Soft and depressible. Bowel sounds are positive. TIFFANIE drain minimal. Extremities: Good capillary refill. Plan: Although, he feels fantastic, we still cannot forget that this patient has perforated appendic itis and the reason he came to this institution was not because of that. His signs and symptoms does not reflect the physical findings and at that moment that is why I called Infectious Disease and we have to be careful sending this patient home without proper intravenous antibiotics because it was a ruptured appendicitis. So, I believe over the weekend, the antibiotics should be done, we can advanc e diet slowly. We do not want vomiting and aspiration on this patient. He is very hungry right now. He is taking his clear liquid diet and once again yes we celebrated that, but at the same time we h ave to be careful. We encouraged ambulation and incentive spirometry. He knows over the weekend I a m going to have one of my colleagues following him up and I will be back on Friday. VINH/AVTARL Voice ID: [id number] Report ID: [id number]
[2023-01-03 18:00] VITALS: O2SAT 98
--- NOTE | 2023-01-03 21:17 | P.PN ---
Date of Service: 01/03/23 Vital Signs Temp Pulse Resp BP Pulse Ox 97.8 F 62 16 171/62 H 98 01/03/23 16:00 01/03/23 16:00 01/03/23 16:00 01/03/23 16:00 01/03/23 16:00 Medications Hydrocodone Bitart/Acetaminophen (Hydrocodone/Apap 5/325 Mg Tab) 1 tab PO Q4H PRN PRN Reason: Pain scale 5-7 (Moderate) Last Admin: 01/02/23 18:25 Dose: 1 tab Piperacillin Sod/Tazobactam (Sod 3.375 gm/ Sodium Chloride) 100 mls @ 25 mls/hr IV Q8HR [facility]; Protocol Last Admin: 01/03/23 17:53 Dose: 100 mls Lactated Ringer's (Lactated Ringers) 1,000 mls @ 75 mls/hr IV .[id number] [facility] Last Admin: 01/03/23 13:49 Dose: 1,000 mls Morphine Sulfate (Morphine 2 Mg/Ml Syr) 2 mg IV Q4H PRN PRN Reason: Pain scale 8-10 (Severe) Tamsulosin HCl (Tamsulosin 0.4 Mg Sr Cap) 0.4 mg PO DAILY [facility] Last Admin: 01/03/23 03:57 Dose: 0.4 mg Assessment/ Plan: Nephrology No dyspnea No chest pain Feeling better No acute events overnight Vitals, medications, blood work and imaging reviewed in the chart. General: In no apparent distress, Oriented x3, Cooperative HEENT: Atraumatic Neck: Supple Respiratory: Clear to auscultation bilaterally Cardiovascular: No edema, Regular rate/rhythm Gastrointestinal: Hypoactive, No guarding, Tenderness Musculoskeletal: No clubbing, No contractures Integumentary: No rashes, No cyanosis Neurological: Normal speech Laboratory Data (last 24 hrs) 01/02/23 01/02/23 01/02/23 10:26 07:33 07:33 WBC 11.80 H Hgb 10.6 L Hct 30.6 L Plt Count 265 PT 11.5 INR 1.05 APTT 32.3 Sodium 136 Potassium 4.4 BUN 28 H Creatinine 1.63 H Glucose 203 H Total Bilirubin 0.6 AST 16 ALT 22 Alkaline Phosphatase 69 Lipase 23 Imagings Data: Abd/ Pelvis CT reviewed. Conclusions/Impression: Stage I NAYELY in the setting of hypovolemia Proteinuria Underlying CKD is unclear at this time -No NSAIDs -Continue IVF with LR HTN with CKD -Start Amlodipine Daily BPH with LUTS -Continue Tamsulosin Anemia in chronic illness -Monitor H&H Hospitalist & ID note reviewed
[2023-01-04] MEDS: PIPER TAZO 3.375 GM in NA CHLORIDE 0.9% 100 ML IV SCH ×3 (00:52→17:32)
[2023-01-04] MEDS: Ringers Lactate 1,000 ML IV SCH ×2 (00:53→09:10)
[2023-01-04] MEDS: TAMSULOSIN 0.4 MG SR CAP PO SCH (09:09)
[2023-01-04] MEDS: AMLODIPINE 5 MG TAB PO SCH (09:09)
[2023-01-04] MEDS ORDERED: NA CHLORIDE 0.9% 500 ML IV ONE (10:13)
--- NOTE | 2023-01-04 15:01 | PN ---
Date of Progress Note: 01/04/2023 Please note, I am covering for Dr. Leigh, and I have discussed the case in detail with him as well as reviewed the computerized chart. Subjective: The patient is awake, alert. He is tolerating clear liquids. No nausea or vomiting. N o pain. Did not have a bowel movement today, did pass some gas yesterday. The patient is hungry and wants solid food. Review of Systems: Otherwise unremarkable. Objective: His vital signs are still stable. He is afebrile, T-max was 99 earlier this morning, cur rently is 97.1. His abdomen is slightly distended. Positive bowel sounds. Nontender. His TIFFANIE drain has serosanguineous fluid in it and it has put out 20 cc in left shift. Laboratory Data: Reviewed. His white count is 10.9 with a left shift. Assessment: Status post appendectomy for perforation with abscess. Recommendations: Continue IV antibiotics, slowly advance diet as tolerated. Encourage ambulation. The patient will need at least 48-72 hours of IV antibiotics. He may be developing ileus. We have t o keep a close eye on that. I discussed the plan of care with Dr. Gonzales as well as the patient. /MODL Voice ID: [id number] Report ID: [id number]
--- NOTE | 2023-01-04 20:23 | P.PN ---
Date of Service: 01/04/23 Vital Signs Temp Pulse Resp BP Pulse Ox 97.4 F 77 18 162/68 H 98 01/04/23 16:00 01/04/23 16:00 01/04/23 16:00 01/04/23 16:00 01/04/23 16:00 Medications Hydrocodone Bitart/Acetaminophen (Hydrocodone/Apap 5/325 Mg Tab) 1 tab PO Q4H PRN PRN Reason: Pain scale 5-7 (Moderate) Last Admin: 01/02/23 18:25 Dose: 1 tab Amlodipine Besylate (Amlodipine 5 Mg Tab) 5 mg PO DAILY [facility] Last Admin: 01/04/23 09:09 Dose: 5 mg Piperacillin Sod/Tazobactam (Sod 3.375 gm/ Sodium Chloride) 100 mls @ 25 mls/hr IV Q8HR [facility]; Protocol Last Admin: 01/04/23 17:32 Dose: 100 mls Lactated Ringer's (Lactated Ringers) 1,000 mls @ 75 mls/hr IV .[id number] [facility] Last Admin: 01/04/23 09:10 Dose: 1,000 mls Morphine Sulfate (Morphine 2 Mg/Ml Syr) 2 mg IV Q4H PRN PRN Reason: Pain scale 8-10 (Severe) Tamsulosin HCl (Tamsulosin 0.4 Mg Sr Cap) 0.4 mg PO DAILY [facility] Last Admin: 01/04/23 09:09 Dose: 0.4 mg Assessment/ Plan: Nephrology No dyspnea No chest pain Feeling better No acute events overnight Vitals, medications, blood work and imaging reviewed in the chart. General: In no apparent distress, Oriented x3, Cooperative HEENT: Atraumatic Neck: Supple Respiratory: Clear to auscultation bilaterally Cardiovascular: No edema, Regular rate/rhythm Gastrointestinal: Hypoactive, No guarding, Tenderness Musculoskeletal: No clubbing, No contractures Integumentary: No rashes, No cyanosis Neurological: Normal speech Laboratory Data (last 24 hrs) 01/02/23 01/02/23 01/02/23 10:26 07:33 07:33 WBC 11.80 H Hgb 10.6 L Hct 30.6 L Plt Count 265 PT 11.5 INR 1.05 APTT 32.3 Sodium 136 Potassium 4.4 BUN 28 H Creatinine 1.63 H Glucose 203 H Total Bilirubin 0.6 AST 16 ALT 22 Alkaline Phosphatase 69 Lipase 23 Imagings Data: EXAM DESCRIPTION: CT - Abdomen Pelvis W Contrast - 01/02/2023 8:20 am CLINICAL HISTORY: Abdominal pain COMPARISON: none. TECHNIQUE: Computed axial tomography of the abdomen pelvis was obtained. 100 cc Isovue-300 was administered intravenously. Oral contrast was not requested which limits evaluation of bowel and appendix All CT scans are performed using dose optimization technique as appropriate and may include automated exposure control or mA/KV adjustment according to patient size. FINDINGS: Liver, spleen, pancreas, adrenals and right kidney are unremarkable. Tiny nonobstructing left renal calculus Probable cholelithiasis. No gallbladder wall thickening The appendix is dilated and fluid-filled with adjacent stranding. Extraluminal air bubble is present. Moderate to large left inguinal hernia contains fat. A small right inguinal hernia Mild prostatic enlargement IMPRESSION: Appendicitis. Extraluminal air bubble suggest perforation Moderate to large left inguinal hernia Conclusions/Impression: Stage I NAYELY in the setting of hypovolemia CKD III with Proteinuria -No NSAIDs -Discontinue IVF Left nonobstructing renal calculus -Maintain hydration HTN with CKD -Continue Amlodipine Daily; titrate as needed PreDM A1C 6.3 -No sugar diet BPH with LUTS -Continue Tamsulosin Anemia in chronic illness -Monitor H&H Hospitalist & ID note reviewed
[2023-01-05] MEDS: PIPER TAZO 3.375 GM in NA CHLORIDE 0.9% 100 ML IV SCH ×4 (01:08→16:49)
[2023-01-05 06:35] LABS: Hematocrit 28.3 % (39.6-49.0); Lymphocytes % 27.2 % (15.3-44.8); MPV 8.9 fL (7.6-11.3); Platelets 239 thou/uL (152-406); RBC Red Blood Cell Count 3.08 M/uL (4.33-5.43)
[2023-01-05 06:40] LABS: Albumin 2.5 g/dL (3.4-5.0); Bilirubin Total 0.2 mg/dL (0.2-1.0); Magnesium 1.9 mg/dL (1.6-2.4); Phosphorus 3.1 mg/dL (2.5-4.9); Protein, Total 6.3 g/dL (6.4-8.2)
--- NOTE | 2023-01-05 08:55 | PN ---
Date of Progress Note: 01/05/2023 Subjective: Patient is awake, alert. No complaints. Passing gas. Objective: Vital Signs: Stable, afebrile. TIFFANIE is putting out 50 and 20 cc, respectively. Abdomen: Slightly distended, but nontender. Laboratory Data: White count is normal, 7.4. Assessment: Status post appendectomy for perforated appendicitis and abscess. Recommendations: If patient is very hungry or wants to eat regular food, we will start him on that a nd monitor him closely. The patient is clinically improving. Another 24 to 48 hours of IV antibioti cs and we need to make sure, he does not develop an ileus because of the abscess, but clinically john ent is doing well. /MODL Voice ID: [id number] Report ID: [id number]
[2023-01-05] MEDS: AMLODIPINE 5 MG TAB PO SCH (09:30)
[2023-01-05] MEDS: TAMSULOSIN 0.4 MG SR CAP PO SCH (09:31)
[2023-01-05] MEDS ORDERED: AMLODIPINE 5 MG TAB PO ONE (18:39)
--- NOTE | 2023-01-05 18:43 | P.PN ---
Date of Service: 01/05/23 Vital Signs Temp Pulse Resp BP Pulse Ox 97.5 F 71 19 182/79 H 97 01/05/23 16:00 01/05/23 16:00 01/05/23 16:00 01/05/23 16:00 01/05/23 16:00 Medications Hydrocodone Bitart/Acetaminophen (Hydrocodone/Apap 5/325 Mg Tab) 1 tab PO Q4H PRN PRN Reason: Pain scale 5-7 (Moderate) Last Admin: 01/02/23 18:25 Dose: 1 tab Amlodipine Besylate (Amlodipine 5 Mg Tab) 5 mg PO DAILY [facility] Last Admin: 01/05/23 09:30 Dose: 5 mg Piperacillin Sod/Tazobactam (Sod 3.375 gm/ Sodium Chloride) 100 mls @ 25 mls/hr IV Q8HR [facility]; Protocol Last Admin: 01/05/23 16:49 Dose: 100 mls Morphine Sulfate (Morphine 2 Mg/Ml Syr) 2 mg IV Q4H PRN PRN Reason: Pain scale 8-10 (Severe) Tamsulosin HCl (Tamsulosin 0.4 Mg Sr Cap) 0.4 mg PO DAILY [facility] Last Admin: 01/05/23 09:31 Dose: 0.4 mg Assessment/ Plan: Nephrology No dyspnea No chest pain Feeling better No acute events overnight Vitals, medications, blood work and imaging reviewed in the chart. General: In no apparent distress, Oriented x3, Cooperative HEENT: Atraumatic Neck: Supple Respiratory: Clear to auscultation bilaterally Cardiovascular: No edema, Regular rate/rhythm Gastrointestinal: Hypoactive, No guarding, Tenderness Musculoskeletal: No clubbing, No contractures Integumentary: No rashes, No cyanosis Neurological: Normal speech Laboratory Data (last 24 hrs) 01/02/23 01/02/23 01/02/23 10:26 07:33 07:33 WBC 11.80 H Hgb 10.6 L Hct 30.6 L Plt Count 265 PT 11.5 INR 1.05 APTT 32.3 Sodium 136 Potassium 4.4 BUN 28 H Creatinine 1.63 H Glucose 203 H Total Bilirubin 0.6 AST 16 ALT 22 Alkaline Phosphatase 69 Lipase 23 Imagings Data: EXAM DESCRIPTION: CT - Abdomen Pelvis W Contrast - 01/02/2023 8:20 am CLINICAL HISTORY: Abdominal pain COMPARISON: none. TECHNIQUE: Computed axial tomography of the abdomen pelvis was obtained. 100 cc Isovue-300 was administered intravenously. Oral contrast was not requested which limits evaluation of bowel and appendix All CT scans are performed using dose optimization technique as appropriate and may include automated exposure control or mA/KV adjustment according to patient size. FINDINGS: Liver, spleen, pancreas, adrenals and right kidney are unremarkable. Tiny nonobstructing left renal calculus Probable cholelithiasis. No gallbladder wall thickening The appendix is dilated and fluid-filled with adjacent stranding. Extraluminal air bubble is present. Moderate to large left inguinal hernia contains fat. A small right inguinal hernia Mild prostatic enlargement IMPRESSION: Appendicitis. Extraluminal air bubble suggest perforation Moderate to large left inguinal hernia Conclusions/Impression: Stage I NAYELY in the setting of hypovolemia CKD III with Proteinuria -No NSAIDs Left nonobstructing renal calculus -Maintain hydration HTN with CKD -Increase Amlodipine 10mg daily -Home medications unclear at this time PreDM A1C 6.3 -No sugar diet BPH with LUTS -Continue Tamsulosin Anemia in chronic illness -Monitor H&H Hospitalist note reviewed
--- NOTE | 2023-01-05 20:34 | P.PN ---
Date of Service: 01/03/23 Subjective Patient still some abdominal distention but otherwise no new complaints. Clinical symptoms are stable. Physical Examination - Vital Signs Reviewed - Physical Exam General: Alert, Oriented x3 Respiratory: Clear to auscultation bilaterally Cardiovascular: No edema Gastrointestinal: Normal bowel sounds Musculoskeletal: No clubbing, No swelling Integumentary: No rashes Neurological: Normal speech Assessment and Plan - Assessment Assessment and plan Appendicitis Renal insufficiency Hypertension - Plan Perforated appendicitis Patient clinically doing well. TIFFANIE drain in place. Some mild abdominal distention. Patient with perforated appendicitis and recommended IV antibiotics. Renal insufficiency: Renal function has improved Hypertension Blood pressure stable
--- NOTE | 2023-01-05 20:35 | P.PN ---
Date of Service: 01/04/23 Subjective Spoke with general surgery. No new changes. Advancing diet. Possible discharge Friday Physical Examination - Vital Signs Reviewed - Physical Exam General: Alert, Oriented x3 Respiratory: Clear to auscultation bilaterally Cardiovascular: No edema Gastrointestinal: Normal bowel sounds Musculoskeletal: No clubbing, No swelling Integumentary: No rashes Neurological: Normal speech Assessment and Plan - Assessment Assessment and plan Appendicitis Renal insufficiency Hypertension - Plan Perforated appendicitis Patient clinically doing well. TIFFANIE drain in place. Some mild abdominal distention. Patient with perforated appendicitis and recommended IV antibiotics. Renal insufficiency: Renal function has improved Hypertension Blood pressure stable
[2023-01-06] MEDS: PIPER TAZO 3.375 GM in NA CHLORIDE 0.9% 100 ML IV SCH ×2 (00:56→09:08)
--- NOTE | 2023-01-06 04:30 | P.PN ---
Date of Service: 01/05/23 Subjective Patient is an 87-year-old gentleman who is very pleasant who came to the hospital with a perforated appendix. Patient was seen by Dr. Leigh and taken to the operating room where patient had a laparoscopic appendectomy performed. Patient is been doing well over the weekend. Patient has TIFFANIE drain. Patient has been on IV antibiotics. Patient does not have a fever and no leukocytosis. Patient is clinically tolerating his diet and he appears to be doing well. Possible discharge tomorrow pending surgery evaluation. Physical Examination - Vital Signs Reviewed - Physical Exam General: Alert, Oriented x3 Respiratory: Clear to auscultation bilaterally Cardiovascular: No edema Gastrointestinal: Normal bowel sounds Musculoskeletal: No clubbing, No swelling Integumentary: No rashes Neurological: Normal speech Assessment and Plan - Assessment Assessment and plan 1. Perforated appendicitis 2. NAYELY/Renal insufficiency 3. Hypertension - Plan Perforated appendicitis Patient clinically doing well. TIFFANIE drain in place. Some mild abdominal distention. Patient with perforated appendicitis and recommended IV antibiotics. Patient has done well over the weekend and may be able to go home in the morning pending surgery evaluation. Renal insufficiency: Renal function has improved Hypertension Blood pressure stable
[2023-01-06 08:40] LABS: Potassium 4.2 mEq/L (3.5-5.1)
[2023-01-06] MEDS ORDERED: AMLODIPINE 5 MG TAB PO SCH (09:00)
[2023-01-06] MEDS: TAMSULOSIN 0.4 MG SR CAP PO SCH (09:08)
--- NOTE | 2023-01-06 10:41 | P.PN ---
Date of Service: 01/06/23 Chief Complaint: Abdominal Pain Subjective: Improving. Patient seen and examined at bedside. Denies any new or worsening complaints at this time. No acute events reported over the weekend. Current plan to discharge home on oral antibiotics. Physical Examination Temp Pulse Resp BP Pulse Ox 97.2 F 66 16 184/75 H 97 01/06/23 08:00 01/06/23 09:08 01/06/23 08:00 01/06/23 09:08 01/06/23 08:00 General: Alert, In no apparent distress, Oriented x3 HEENT: Atraumatic, Normocephalic. Hearing loss, bilateral hearing aids. Neck: Supple, JVD not distended Respiratory: Diminished. Nonlabored respirations on room air. Cardiovascular: Normal S1 S2 Gastrointestinal: Normal bowel sounds. No tenderness. Distended. Musculoskeletal: No clubbing Integumentary: abdominal laparoscopic incision sites clean dry and intact. Neurological: Normal speech, Normal tone, Normal affect Laboratory Data - Reviewed Imaging Data - Reviewed Medications List - Reviewed Assessment and plan Problem list Acute perforated appendicitis with periappendiceal abscess Hypertension BPH Acute Perforated Appendicitis with Periappendiceal Abscess - CT abdomen pelvis 01/02: "Appendicitis. Extraluminal air bubble suggest perforation. Moderate to large left inguinal hernia." - s/p laparoscopic appendectomy and open repair of umbilical hernia on 01/[address] Leigh. He was found to have acute perforated appendicitis with periappendiceal abscess. - On Zosyn (started 01/02) - Leukocytosis resolved. Afebrile. Recommendations - Continue antibiotic therapy for 7 days postoperatively. Patient has been improving, Denies any new or worsening complaints. No leukocytosis, afebrile. - Switch to Augmentin PO upon discharge to complete remainder of antibiotic course (01/02 to 01/09) - Surgical site wound care per Dr. Leigh. - Follow up with Dr. Leigh as outpatient - Monitor for worsening signs/symptoms of infection Case discussed with Domenico Rodriguez
--- NOTE | 2023-01-06 10:43 | P.DS ---
Admission Date: 01/02/23 Discharge Date: 01/06/23 Disposition: ROUTINE DISCHARGE Discharge Condition: GOOD Reason for Admission: Abdominal Pain Consultations: 1. General Surgery 2. Nephrology 3. Infectious Diseases Procedures: - 01/02/2023 - Laparoscopic Ruptured Appendectomy, Open Repair of Umbilical Hernia Hospital Course: DIAGNOSES: # Acute Perforated Appendicitis # KDIGO Stage I Acute Kidney Injury on likely Chronic Kidney Disease Stage III # Hypertension # Benign Prostatic Hyperplasia HOSPITAL COURSE: Mr. Owen Boo is a pleasant 87 year old male with a past medical history significant for hypertension and benign prostatic hyperplasia who was admitted to the [facility] on 01/02/2023 for abdominal pain. He was admitted to the Medicine service. Upon further evaluation, his CT abdomen/pelvis revealed, "appendicitis. Extraluminal air bubble suggest perforation. Moderate to large left inguinal hernia." General Surgery was consulted and he was evaluated by Dr. Leigh. On 01/02/2023, he underwent a laparoscopic ruptured appendectomy and open repair of umbilical hernia. He tolerated the procedure well and his diet was advanced. Due to the severity of his appendicitis, it was recommended that he remain hospitalized for several days of IV antibiotics prior to discharge. This morning, he stated that he felt significantly better and requested to be discharged home. His case was reviewed with Dr. Leigh, Dr. Mata, and LEATHA Hook, who have all cleared him from their respective standpoints. Dr. Leigh will schedule him for a TIFFANIE drain removal in his office on 01/10/2023. On 01/06/2023, he was seen on morning rounds and deemed medically stable for discharge. He was discharged with instructions to schedule follow-up appointments with his PCP (Dr. Amezcua), with Nephrology (Dr. Mata), and with General Surgery (Dr. Leigh). He was provided prescriptions for amoxicillin-clavulanate and Tylenol # 3. He was given the opportunity to ask questions and reported no further questions. Furthermore, all questions were answered to the best of my ability. Prior to the controlled substance prescription, a PDMP review was conducted. Over the last 2 years, he has received 0 prescriptions to 0 pharmacies from 0 providers. His opioid overdose risk score is 0. A copy of this discharge summary will be sent to the above providers to facilitate continuity of care. Today, I personally spent 25 minutes on his case, of which greater than 50% of the time was spent in patient education, counseling, and coordination of care as described above. Vital Signs/Physical Exam: Temp Pulse Resp BP Pulse Ox 97.2 F 66 16 184/75 H 97 01/06/23 08:00 01/06/23 09:08 01/06/23 08:00 01/06/23 09:08 01/06/23 08:00 General: Alert, In no apparent distress, Oriented x3 HEENT: Atraumatic, Mucous membr. moist/pink, Sclerae nonicteric Neck: JVD not distended Respiratory: Clear to auscultation bilaterally, Normal air movement Cardiovascular: No edema, Regular rate/rhythm, Normal S1 S2, No gallops, No rubs, No murmurs Gastrointestinal: Normal bowel sounds, Soft and benign, Non-distended, No tenderness, No rebound, No guarding, Other (TIFFANIE drain in place) Musculoskeletal: No clubbing Integumentary: No rashes Neurological: Normal speech, Normal affect Laboratory Data at Discharge: WBC 7.40 thou/uL (4.3-10.9) 01/05/23 05:42 Hgb 9.8 g/dL (13.6-17.9) L 01/05/23 05:42 Hct 28.3 % (39.6-49.0) L 01/05/23 05:42 Plt Count 239 thou/uL (152-406) 01/05/23 05:42 PT 11.5 SECONDS (9.5-12.5) 01/02/23 10:26 INR 1.05 01/02/23 10:26 APTT 32.3 SECONDS (24.3-36.9) 01/02/23 10:26 Sodium 138 mEq/L (136-145) 01/06/23 08:10 Potassium 4.2 mEq/L (3.5-5.1) 01/06/23 08:10 BUN 14 mg/dL (7-18) 01/06/23 08:10 Creatinine 1.35 mg/dL (0.70-1.30) H 01/06/23 08:10 Glucose 122 mg/dL (74-106) H 01/06/23 08:10 Uric Acid 6.1 mg/dL (3.5-7.2) 01/03/23 08:04 Phosphorus 3.1 mg/dL (2.5-4.9) 01/05/23 05:42 Magnesium 1.9 mg/dL (1.6-2.4) 01/05/23 05:42 Total Bilirubin 0.2 mg/dL (0.2-1.0) 01/05/23 05:42 AST 28 U/L (15-37) 01/05/23 05:42 ALT 28 U/L (16-61) 01/05/23 05:42 Alkaline Phosphatase 52 U/L (45-117) 01/05/23 05:42 Lipase 23 U/L (13-75) 01/02/23 07:33 Home Medications: Amoxicillin/Potassium Clav [Amox-Clav 875-125 mg Tablet] 875 mg PO BID 3 Days #6 tab 01/06/23 Codeine/APAP [Tylenol W/Codeine #3 tab] 1 tab PO Q6HP PRN 3 Days #12 tab 01/06/23 New Medications: Codeine/APAP [Tylenol W/Codeine #3 tab] 1 tab PO Q6HP PRN 3 Days #12 tab PRN Reason: Pain Amoxicillin/Potassium Clav [Amox-Clav 875-125 mg Tablet] 875 mg PO BID 3 Days #6 tab Physician Discharge Instructions: 1. Please call and schedule a follow-up appointment with your PCP (Dr. Amezcua) in 3-5 days - Your bloodwork showed mild anemia. Please discuss further evaluation, including a colonoscopy, with your PCP - Your CT scan showed a small kidney stone. Please discuss with your PCP at your upcoming visit. 2. Please call and schedule a follow-up appointment with Nephrology (Dr. Mata) in 5-7 days 3. Please call and schedule a follow-up appointment with General Surgery (Dr. Leigh) in 5-7 days - Your CT scan showed gallbladder stones. Please discuss with Dr. Leigh at your upcoming visit. - He will schedule a removal of your drain on 01/10/2023 - Please do not drive or operate heavy machinery while taking pain medications. Diet: AHA Activity: Ad mahendra Followup: Rocky Mata DO [ACTIVE - CAN ADMIT] - Jeff Amezcua MD [Primary Care Provider] - Pepe Leigh MD [ACTIVE - CAN ADMIT] - Time spent managing pt's care (in minutes): 25
[2023-01-06 12:57] VITALS: BP 166/75; TEMP 97
--- NOTE | 2023-01-06 20:50 | P.PN ---
Date of Service: 01/06/23 Vital Signs Temp Pulse Resp BP Pulse Ox 97 F 72 18 166/75 H 94 01/06/23 12:00 01/06/23 12:00 01/06/23 12:00 01/06/23 12:00 01/06/23 12:00 Assessment/ Plan: Nephrology No dyspnea No chest pain Feeling better No acute events overnight Vitals, medications, blood work and imaging reviewed in the chart. General: In no apparent distress, Oriented x3, Cooperative HEENT: Atraumatic Neck: Supple Respiratory: Clear to auscultation bilaterally Cardiovascular: No edema, Regular rate/rhythm Gastrointestinal: Hypoactive, No guarding, Tenderness Musculoskeletal: No clubbing, No contractures Integumentary: No rashes, No cyanosis Neurological: Normal speech Laboratory Data (last 24 hrs) 01/02/23 01/02/23 01/02/23 10:26 07:33 07:33 WBC 11.80 H Hgb 10.6 L Hct 30.6 L Plt Count 265 PT 11.5 INR 1.05 APTT 32.3 Sodium 136 Potassium 4.4 BUN 28 H Creatinine 1.63 H Glucose 203 H Total Bilirubin 0.6 AST 16 ALT 22 Alkaline Phosphatase 69 Lipase 23 Imagings Data: EXAM DESCRIPTION: CT - Abdomen Pelvis W Contrast - 01/02/2023 8:20 am CLINICAL HISTORY: Abdominal pain COMPARISON: none. TECHNIQUE: Computed axial tomography of the abdomen pelvis was obtained. 100 cc Isovue-300 was administered intravenously. Oral contrast was not requested which limits evaluation of bowel and appendix All CT scans are performed using dose optimization technique as appropriate and may include automated exposure control or mA/KV adjustment according to patient size. FINDINGS: Liver, spleen, pancreas, adrenals and right kidney are unremarkable. Tiny nonobstructing left renal calculus Probable cholelithiasis. No gallbladder wall thickening The appendix is dilated and fluid-filled with adjacent stranding. Extraluminal air bubble is present. Moderate to large left inguinal hernia contains fat. A small right inguinal hernia Mild prostatic enlargement IMPRESSION: Appendicitis. Extraluminal air bubble suggest perforation Moderate to large left inguinal hernia Conclusions/Impression: Stage I NAYELY in the setting of hypovolemia CKD III with Proteinuria -No NSAIDs Left nonobstructing renal calculus -Maintain hydration HTN with CKD -Continue Amlodipine 10mg daily -Home medications unclear at this time PreDM A1C 6.3 -No sugar diet BPH with LUTS -Continue Tamsulosin Anemia in chronic illness -Monitor H&H Hospitalist note reviewed Case reviewed with Dr. Castellanos
--- NOTE | 2023-01-06 21:20 | OP ---
Date of Procedure: 01/02/2023 Surgeon: Pepe Leigh MD Harvest Manager: VANESA Izquierdo. Preoperative Diagnosis: Acute perforated appendicitis. Postoperative Diagnoses: Acute perforated appendicitis, periappendiceal abscess, and umbilical herni a. Procedures: Laparoscopic perforated appendectomy and open repair of umbilical hernia. Estimated Blood Loss: Less than 20 cc. Specimen: Appendix and hernia sac. Finding: Acute perforated appendicitis with periappendiceal abscess. Also, the patient has hernia s ac. Anesthesia: General plus local. Drains: TIFFANIE #10. Indication: This is the case of an 87-year-old patient, who comes to us with abdominal pain, diagnos ed with acute perforated appendicitis. The benefits, alternatives, and risks of laparoscopic possibl e open appendectomy fully explained, which include, but not limited to infection, bleeding, damage to adjacent structures, anesthesia complication, abscess, PR, and even . He understands this may not relieve any symptoms. He might need more than one surgical intervention. He understands the ivelisse gnosis preoperatively of a possible perforation of the appendix and the long-term antibiotics, this m ay require. He understood, family understood and signed a consent. Procedure In Detail: The patient was brought emergently to the operating room, placed in supine posi tion. Anesthesia was done without complication. Abdominal area was prepped and draped in the usual sterile fashion. Marcaine 0.5% was injected for local anesthetic followed by sharp incision of the s kin in the infraumbilical region. The incision was carried down to fascia, which was opened under di rect vision. Vicryl #1 placed inside the fascia. Yesenia trocar was carefully introduced. Pneumoper itoneum was obtained. I placed 3 more trocars, 5 mm each one of them, suprapubic and left lower quad rant under direct visualization. This allowed me to visualize the area of the appendix, indeed it sh ows a perforated appendicitis. The base of the appendix seems to be spared, but we have to get a lit tle bit of the cecum to be able to get gross negative margins. The abscess was adjacent to the appen merced, that area was irrigated. We transected the appendix with Endo-REYES 45 mm nonvascular and the mes oappendix with an Endo REYES 45 mm vascular and the help also of LigaSure. The area was irrigated. Ap pendix was removed from abdominal cavity using an EndoCatch through the umbilical incision. The area was irrigated with several liters of fluid until clean. Hemostasis was confirmed. Also, no bile le ak. At that moment, I proceeded to put a TIFFANIE drain in that area to help us with the postoperative gianfranco inage and secured in place with 3-0 nylon exiting through 1 of the trocar sites. The patient tolerat ed the procedure well. At that moment, I proceeded to remove the trocars under direct vision. Defla enrico the pneumoperitoneum. Closed the fascia with #1 Vicryl. Irrigated subcutaneous tissue, closed t hat with 3-0 chromic and skin with cong. Sponge count, instrument counts correct. The patient to lerated the procedure well. The patient was sent to recovery in stable condition. The patient will be got admitted to the hospital. VINH/MEHDI Voice ID: [id number] Report ID: [id number]
--- NOTE | 2023-01-06 21:20 | PN ---
Date of Progress Note: 01/06/2023 Diagnoses: Acute perforated appendicitis plus periappendiceal abscess, umbilical hernia. Procedure: Laparoscopic appendectomy, open repair of umbilical hernia. Physical Examination: Vital Signs: Stable. General: The patient is awake, alert. No distress. HEENT: Pupils are equal and reactive. Anicteric. Neck: Supple. Chest: Clear. Heart: S1, S2. Abdomen: Soft and depressible. No guarding or rebound. TIFFANIE drain minimal serosanguineous. No pus. Extremities: Good capillary refill. Review of Systems: No shortness of breath. No chest pain. No fever. Good appetite. Good bowel movement. Passing gas . Laboratory Data: Blood work shows a WBC count of 7.4. Plan: The patient is doing well. No complaint. He wants to go home. I believe he is doing good si nce the day #1. He is going to promise he is going to continue with his antibiotics at home. He is going to follow up in my office this week to remove the TIFFANIE drain. Avoid heavy lifting. From the stephanie gical standpoint if he continues with the antibiotics and clinically since he is doing great, I have no objection for him going back home. VINH/MEHDI Voice ID: [id number] Report ID: [id number]
== END 2023-01-06 12:58 | disposition home or self-care (01) | DRG 339 ==
LOC: ER 06:47 → ERHOLD 10:30 → 4TH 14:45
PROVIDERS: ADMIT Hospitalist; ATTEND Internal Medicine
PROC: 0WQF0ZZ Repair Abdominal Wall, Open Approach (ICD-10-PCS; 2023-01-02)
PROC: 0DTJ4ZZ Resection of Appendix, Percutaneous Endoscopic Approach (ICD-10-PCS; principal; 2023-01-02 12:00)
DX: K35.33 Acute appendicitis with perforation, localized peritonitis, and gangrene, with abscess (principal); N17.9 Acute kidney failure, unspecified; K42.9 Umbilical hernia without obstruction or gangrene; E86.0 Dehydration; N28.9 Disorder of kidney and ureter, unspecified; N40.1 Benign prostatic hyperplasia with lower urinary tract symptoms; E86.1 Hypovolemia; I12.9 Hypertensive chronic kidney disease with stage 1 through stage 4 chronic kidney disease, or unspecified chronic kidney disease; N18.30 Chronic kidney disease, stage 3 unspecified; D63.1 Anemia in chronic kidney disease; D63.8 Anemia in other chronic diseases classified elsewhere; R73.03 Prediabetes; Z97.4 Presence of external hearing-aid
CPT/HCPCS: 36415; 74177; 80048; 80053; 81001; 82043; 82570; 83036; 83690; 83735; 83880; 84100; 84145; 84156; 84550; 85025; 85610; 85730; 88302; 88304; 94010; 96365; 99285; J1100; J2001; J2405; J2543; J2704; J2710; J3010; J7040; J7120; Q9967

== ENCOUNTER 2023-02-24 06:51 | Day surgery (SDC) | payer OTHER ==
[2023-02-24] MEDS ORDERED: Ringers Lactate 1,000 ML IV ONE (07:42)
[2023-02-24] MEDS ORDERED: propofoL 200 MG/20 ML VIAL IV ONE (08:31)
[2023-02-24] MEDS ORDERED: LIDOCAINE 1% MPF 5 ML VIAL ONE (08:31)
[2023-02-24 10:07] VITALS: O2SAT 100
[2023-02-24 10:09] VITALS: BP 132/67; TEMP 97
--- NOTE | 2023-02-25 07:53 | EKG ---
Test Date: 2023-02-24 Test Time: 07:43:00 Criminal Profiler: WIL MEASUREMENT RESULTS: Intervals: Rate: 64 W[place]: 164 QRSD: 94 QT: 412 QTc: 425 [place]: P: 44 W[place]: 164 QRS: -1 T: 11 INTERPRETIVE STATEMENTS: Normal sinus rhythm Minimal voltage criteria for LVH, may be normal variant Borderline ECG No previous ECG available for comparison Electronically Signed On 02-25-23 07:50:00 CDT by Nehemias Triplett
== END 2023-02-24 09:30 | disposition home or self-care (01) ==
LOC: OR 06:51
PROVIDERS: ATTEND Surgery
PROC: 0DBH8ZX Excision of Cecum, Via Natural or Artificial Opening Endoscopic, Diagnostic (ICD-10-PCS; principal; 2023-02-24 08:30)
DX: Z12.11 Encounter for screening for malignant neoplasm of colon (principal); K64.4 Residual hemorrhoidal skin tags; K64.8 Other hemorrhoids; K57.30 Diverticulosis of large intestine without perforation or abscess without bleeding; K63.5 Polyp of colon
CPT/HCPCS: 88305; 93005; J2001; J2704; J7120